=== PATIENT | male | born 1950 | race Caucasian/White ===

== ENCOUNTER 2017-02-01 17:26 | Emergency (ER) | payer OTHER ==
[2017-02-01] MEDS ORDERED: ASPIRIN CHEWABLE PO STA (17:33)
[2017-02-01] MEDS ORDERED: MORPHINE 4 MG/ML SYRINGE IVP STA (17:34)
[2017-02-01 17:35] VITALS: BP 181/111; TEMP 100; BMI 25.2
[2017-02-01] MEDS ORDERED: ZOFRAN 4 MG/2 ML IVP STA (17:35)
[2017-02-01] MEDS ORDERED: ASPIRIN CHEWABLE ONE (17:36)
[2017-02-01 17:38] LABS: BASOPHILS # (AUTO) 0.1 K/uL (0-0.2); BASOPHILS % (AUTO) 0.5 % (0.0-3.0); EOSINOPHILS # (AUTO) 0.2 K/ul (0.0-0.7); EOSINOPHILS % (AUTO) 1.8 % (0.0-7.0); HEMATOCRIT 47.5 % (42.0-52.0); HEMOGLOBIN 16.2 g/dl (14.0-18.0); IMMATURE GRANULOCYTE % (AUTO) 0.3 % (0.0-5.0); MEAN CORPUSCULAR HEMOGLOBIN 32.3 pg (27.0-31.0); MEAN CORPUSCULAR HGB CONC 34.1 (31.8-35.4); MEAN CORPUSCULAR VOLUME 94.8 fl (80.0-94.0); MONOCYTES # (AUTO) 0.7 K/uL (0.4-2.0); MONOCYTES % (AUTO) 7.1 (0-10); NEUTROPHILS # (AUTO) 5.8 K/ul (2.0-6.9); NEUTROPHILS % (AUTO) 59.3; PLATELET COUNT 254 10^3/uL (140-440); RED BLOOD COUNT 5.01 10^6/ul (4.70-6.10); WHITE BLOOD COUNT 9.82 K/ul (4.2-10.2)
--- NOTE | 2017-02-01 17:52 | DI ---
EXAM: AP single view of the chest. HISTORY: Chest pain. FINDINGS: The bones are unremarkable. The cardiac silhouette and pulmonary vasculature are within n ormal limits. The costophrenic angles are clear. There is minimal left basilar atelectasis and/or p neumonia. Impression: Minimal left basilar atelectasis and/or pneumonia.
[2017-02-01 18:10] LABS: ALBUMIN 3.9 g/dL (3.4-5.0); ALBUMIN/GLOBULIN RATIO 1.05; ANION GAP 13.6; BILIRUBIN,TOTAL 0.57 mg/dL (0.00-1.20); BUN/CREATININE RATIO 14.01; CALCIUM 9.4 mg/dL (8.2-10.2); CREATININE 1.07 mg/dL (0.60-1.10); POTASSIUM 4.6 mmol/L (3.5-5.1); TOTAL PROTEIN 7.6 g/dL (5.8-8.1); TROPONIN I 0.016 ng/ml (0.0000-0.4000)
--- NOTE | 2017-02-01 18:24 | ED.PDOC ---
General ED Provider: Dr. PRIMITIVO PITTS Chief Complaint: Chest Pain Stated Complaint: chest pain Time Seen by Physician: 17:30 (chest pain at rest about 1.5 hr [employer]) Mode of Arrival: Wheelchair Information Source: Patient, Family Exam Limitations: No limitations Primary Care Provider: SEBASTIAN KLINE Nursing and Triage Documentation Reviewed and Agree: Yes Cardiovascular Complaint Exam - Chest Pain Complaint/Exam Onset: Gradual Duration: 1.5 hours ago at rest Symptoms Are: Resolved Timing: Constant Length of Chest Pain Episodes: 1hr Initial Severity: Moderate Current Severity: Moderate Location: Reports: Midsternal Pain Radiates: Reports: None Character: Reports: Aching, Tightness Aggravating: Reports: None Alleviating: Reports: None Associated Signs and Symptoms: Denies: Diaphoresis, Nausea, Vomiting, Fever, Palpitations, Cough, Hemoptysis, Back pain, Abdominal pain, Dizziness, Short of air, Calf pain, Calf swelling Related History: Reports: Similar episode Related Surgical History: Reports: None History of Healthcare-Acquired Pneumonia: Reports: No Review of Systems - Review Of Systems Constitutional: Reports: No symptoms Eyes: Reports: No symptoms Ears, Nose, Mouth, Throat: Reports: No symptoms Respiratory: Reports: No symptoms Cardiac: Reports: Chest pain GI: Reports: No symptoms : Reports: No symptoms Musculoskeletal: Reports: No symptoms Skin: Reports: No symptoms Neurological: Reports: No symptoms Endocrine: Reports: No symptoms Hematologic/Lymphatic: Reports: No symptoms All Other Systems: Reviewed and Negative Past Medical History - Past Medical History Previously Healthy: Yes Endocrine: Reports: None Cardiovascular: Reports: None Respiratory: Reports: COPD Hematological: Reports: None Gastrointestinal: Reports: None Genitourinary: Reports: None Neuro/Psych: Reports: None Musculoskeletal: Reports: None Cancer: Reports: None - Surgical History General Surgical History: Reports: None - Family History Family History: Reports: None - Social History Smoking Status: Former smoker Hx Substance Use: No Alcohol Screening: None Physical Exam - Physical Exam Appearance: Well-appearing, No pain distress, Well-nourished Eyes: STEVO, EOMI, Conjunctiva clear ENT: Ears normal, Nose normal, Oropharynx normal Respiratory: Airway patent, Breath sounds clear, Breath sounds equal, Respirations nonlabored Cardiovascular: RRR, Pulses normal, No rub, No murmur GI/: Soft, Nontender, No masses, Bowel sounds normal, No Organomegaly Musculoskeletal: Normal strength, ROM intact, No edema, No calf tenderness Skin: Warm, Dry, Normal color Neurological: Sensation intact, Motor intact, Reflexes intact, Cranial nerves intact, Alert, Oriented Psychiatric: Affect appropriate, Mood appropriate Interpretation - Radiology Interpretation Radiology Interpretation By: Radiologist Radiology Results: No acute changes (possible pneumonia) - Technical Assistance Consultant Rate: Normal Rhythm: Sinus - EKG Interpretation Rate: Normal Rhythm: Sinus Ectopy: None [place]: NL ST Segment: Normal Critical Care Note - Critical Care Note Total Time (mins): 0 Course - Course Hematology/Chemistry: 02/01/17 17:30 02/01/17 17:30 Orders, Labs, Meds: Lab Review 02/01/17 02/01/17 17:30 17:35 WBC 9.82 RBC 5.01 Hgb 16.2 Hct 47.5 MCV 94.8 H MCH 32.3 H MCHC 34.1 RDW Coeff of Carlos 12.9 Plt Count 254 Immature Gran % (Auto) 0.3 Neut % (Auto) 59.3 Lymph % (Auto) 31.0 [place] % (Auto) 7.1 Eos % (Auto) 1.8 Baso % (Auto) 0.5 Immature Gran # (Auto) 0.0 Neut # 5.8 Lymph # 3.0 [place] # 0.7 Eos # 0.2 Baso # 0.1 D-Dimer (Manual) 303.30 Sodium 144 Potassium 4.6 Chloride 106 Carbon Dioxide 29 Anion Gap 13.6 BUN 15 Creatinine 1.07 Estimated GFR (MDRD) 69.00 BUN/Creatinine Ratio 14.01 Glucose 113 Calcium 9.4 Total Bilirubin 0.57 AST 18 ALT 20 Alkaline Phosphatase 72 Total Creatine Kinase 40 Troponin I 0.0160 Total Protein 7.6 Albumin 3.9 Globulin 3.7 Albumin/Globulin Ratio 1.05 Amylase 38 Lipase 61 Orders Category Date Time Status EKG-(ED ONLY) Stat CARDIO 02/01/17 18:00 Completed EKG-(ED ONLY) Stat CARDIO 02/01/17 18:20 Ordered IV [ED IV/MEDIPORT/POWERPORT] .ONCE EMERGENCY 02/01/17 17:32 Active AMYLASE Stat LAB 02/01/17 17:30 Completed CBC W/ AUTO DIFF Stat LAB 02/01/17 17:30 Completed COMPREHENSIVE METABOLIC PANEL Stat LAB 02/01/17 17:30 Completed CREATINE KINASE Stat LAB 02/01/17 17:30 Completed D-DIMER Stat LAB 02/01/17 17:35 Completed LIPASE Stat LAB 02/01/17 17:30 Completed TROPONIN I Stat LAB 02/01/17 17:30 Completed 0.9 % Sodium Chloride [Saline Flush] MEDS 02/01/17 17:32 Ordered 1 syr IVF PRN PRN Aspirin [Aspirin Chewable] MEDS 02/01/17 17:36 Discontinued 243 mg .ROUTE .STK-MED ONE Aspirin [Aspirin Chewable] MEDS 02/01/17 17:33 Discontinued 264 mg PO ONCE STA Morphine Sulfate [Morphine 4 mg/ml Syringe] MEDS 02/01/17 17:34 Discontinued 4 mg IVP ONCE STA Ondansetron HCl/Pf [Zofran 4 mg/2 ml] MEDS 02/01/17 17:35 Discontinued 4 mg IVP ONCE STA CHEST, 1V AP ONLY Stat RADS 02/01/17 17:32 Completed Medications Generic Name Dose Route Start Last Admin Trade Name Freq PRN Reason Stop Dose Admin Sodium Chloride 1 syr 02/01/17 17:32 02/01/17 17:35 Saline Flush IVF 1 syr PRN PRN Administration To flush IV Discontinued Medications Generic Name Dose Route Start Last Admin Trade Name Freq PRN Reason Stop Dose Admin Aspirin 264 mg 02/01/17 17:33 02/01/17 17:35 Aspirin Chewable PO 02/01/17 17:34 264 mg ONCE STA Administration Morphine Sulfate 4 mg 02/01/17 17:34 02/01/17 17:41 Morphine 4 Mg/Ml Syringe IVP 02/01/17 17:35 4 mg ONCE STA Administration Ondansetron HCl 4 mg 02/01/17 17:35 02/01/17 17:39 Zofran 4 Mg/2 Ml IVP 02/01/17 17:36 4 mg ONCE STA Administration Vital Signs: Temp Pulse Resp BP Pulse Ox 02/01/17 17:28 100 F H 81 28 H 181/111 H 98 JANENE Risk Score JANENE Risk Score: Risk Score Odds of by 30D 0 0.1 (0.1-0.2) 1 0.3 (0.2-0.3) 2 0.4 (0.3-0.5) 3 0.7 (0.6-0.9) 4 1.2 (1.0-1.5) 5 2.2 (1.9-2.6) 6 3.0 (2.5-3.6) 7 4.8 (3.8-6.1) Departure - Departure Time of Disposition: 18:25 Disposition: TSF SHORT-TRM HOSP Discharge Problem: Chest pain Instructions: Chest Pain (ED), Angina (ED) Condition: Good Pt referred to PMD for follow-up: No Additional Instructions: Please call your Family Physician as soon as possible to schedule a follow-up appointment. Allergies/Adverse Reactions: Allergies mold Adverse Reaction (Verified 02/01/17 17:39) NSAIDS (Non-Steroidal Anti-Inflamma Adverse Reaction (Verified 02/01/17 17:36) Penicillins Adverse Reaction (Verified 02/01/17 17:36) Home Medications: Ambulatory Orders Albuterol Sulfate [Proair Hfa] 2 puff IH Q4H PRN 02/01/17 Aspirin [Lo-Dose Aspirin EC] 81 mg PO DAILY 02/01/17 Oxycodone-Acetaminophen 10-325 [Percocet 10-325] 1 tab PO Q6H 02/01/17 Tiotropium [place] [Spiriva] 18 mcg IH DAILY 02/01/17
== END 2017-02-01 19:25 | disposition short-term general hospital (02) ==
LOC: ED 17:26
DX: R07.9 Chest pain, unspecified (principal); J44.9 Chronic obstructive pulmonary disease, unspecified; Z79.899 Other long term (current) drug therapy
CPT/HCPCS: 36415; 80053; 82150; 82550; 83690; 84484; 85025; 85379; 93005; 93010; 96374; 96375; 99285

== ENCOUNTER 2017-02-01 19:25 | Outpatient (CLI) ==
[2017-02-01 17:35] VITALS: BMI 25.2
== END 2017-02-01 19:26 | disposition home or self-care (01) ==
LOC: AMBL 19:25
PROVIDERS: ATTEND Internal Medicine Geriatric Medicine
DX: R07.89 Other chest pain (principal); J44.9 Chronic obstructive pulmonary disease, unspecified; K46.9 Unspecified abdominal hernia without obstruction or gangrene